=== PATIENT | male | born 1950 | race Caucasian/White ===

== ENCOUNTER 2018-09-15 19:48 | Inpatient (IN) | payer OTHER, MEDICARE ==
[~2018-09-15] VITALS: Ht 182.9 cm; Wt 79.0 kg
[~2018-09-15 19:48] MED LIST: ATOR40TA PO; CAMPHETSO TOP; CEFTIN PO; CHOL10002; CVS LUBRICATING15 ML BOTHEYES; CYCL10 PO; FLONASE ALLERG9.9 ML; GABA300 PO; HYDROCORTISON28.4 G4 TOP; LIDO700A20 TOP; LISI5 PO; LORA1 PO; MICROZIDE12.5 M1 PO; MULVIT PO; NITR.4SL SL; Norco 10-325 T1 EACH PO; ONDA8 PO; OXYB5 PO; Omeprazole20 M1 PO; PIRO20 PO; PROC10 PO; TAMS.4ER PO; TEARS NATURALE LEFTEYE; [UNRECOGNIZED DRUG - REMARK]
[2018-09-15] MEDS ORDERED: ALBU90OI INH (20:22)
[2018-09-15] MEDS ORDERED: ATOR40TA PO (20:23)
[2018-09-15] MEDS ORDERED: LUBRICANT EYE D15 M1 BOTHEYES (20:26)
[2018-09-15] MEDS ORDERED: CYCL10 PO (20:27)
[2018-09-15] MEDS ORDERED: CHOL10002 PO (20:27)
[2018-09-15] MEDS ORDERED: GUAI600T33 PO (20:29)
[2018-09-15] MEDS ORDERED: HYDCHL12.5 PO (20:29)
[2018-09-15] MEDS ORDERED: Ketoconazole15 GM TOP (20:53)
[2018-09-15] MEDS ORDERED: Ketoconazole120 ML TOP (20:55)
[2018-09-15] MEDS ORDERED: SELENIUM SULFI180 ML TOP (20:56)
[2018-09-15] MEDS ORDERED: MORP30ER PO (20:57)
[2018-09-15 21:03] LABS: BASOPHILS ABSOLUTE AUTO 0.01 K/mm3 (0.00-0.23); BASOPHILS PERCENT AUTO 0 % (0-2); EOSINOPHILS ABSOLUTE AUTO 0.03 K/mm3 (0.00-0.68); EOSINOPHILS PERCENT AUTO 0 % (0-6); Hemoglobin 8.9 g/dL (13.5-17.5); IMMATURE GRAN ABSOLUTE AUTO 0.12 K/mm3 (0.00-0.10); IMMATURE GRAN PERCENT AUTO 2 % (0-1); LYMPHOCYTES ABSOLUTE AUTO 0.94 K/mm3 (0.84-5.20); LYMPHOCYTES PERCENT AUTO 13 % (21-46); MONOCYTES ABSOLUTE AUTO 1.73 K/mm3 (0.16-1.47); MONOCYTES PERCENT AUTO 23 % (4-13); Mean Corpuscular HGB Conc 31.8 g/dL (31.5-36.5); Mean Corpuscular Volume 85 fL (80-100); Mean Platelet Volume 8.4 fL (9.1-12.4); NEUTROPHILS ABSOLUTE AUTO 4.72 K/mm3 (1.96-9.15); NEUTROPHILS PERCENT AUTO 63 % (41-73); Platelet Count 524 K/mm3 (150-400); RDW Coefficient Variation 16.1 % (11.7-14.2); RDW Standard Deviation 49.6 fL (35.1-46.3); White Blood Cell Count 7.55 K/mm3 (4.00-11.30)
[2018-09-15] MEDS ORDERED: PIRO20 PO (21:10)
[2018-09-15] MEDS ORDERED: LORA1 PO (21:15)
[2018-09-15] MEDS ORDERED: I-Vite1 EACH PO (21:16)
[2018-09-15 21:23] LABS: Alanine Aminotransfer (ALT/SGP 22 U/L (12-78); Albumin, Blood 2.1 g/dL (3.4-5.0); Albumin/Globulin Ratio 0.4 (0.8-1.8); Alk Phos 196 U/L (50-136); Anion Gap 11 mmol/L (6-16); Aspartate Aminotrans (AST/SGOT 24 U/L (12-37); Bilirubin, Total 0.2 mg/dL (0.1-1.0); Blood Urea Nitrogen 23 mg/dL (8-24); Bun/Creatinine Ratio 33.4 (12.0-20.0); CO2, Blood 24 mmol/L (21-32); Calcium, Blood 8.4 mg/dL (8.5-10.1); Chloride, Blood 97 mmol/L (98-108); Creatinine, Blood 0.69 mg/dL (0.60-1.20); Globulin, Blood 4.9 g/dL (2.2-4.0); Glomerular Filtration Rate >60 (60-); Glucose, Blood 110 mg/dL (70-99); Potassium, Blood 3.8 mmol/L (3.5-5.5); Sodium, Blood 132 mmol/L (136-145); Troponin I 0.027 ng/mL (0.000-0.040)
[2018-09-16 04:38] LABS: Hematocrit 26.9 % (37.0-53.0); Hemoglobin 8.4 g/dL (13.5-17.5); Mean Corpuscular HGB 26.2 pg (26.0-34.0); Mean Corpuscular HGB Conc 31.2 g/dL (31.5-36.5); Mean Corpuscular Volume 84 fL (80-100); Platelet Count 505 K/mm3 (150-400); RDW Coefficient Variation 16.2 % (11.7-14.2); RDW Standard Deviation 49.1 fL (35.1-46.3); Red Blood Cell Count 3.21 M/mm3 (4.30-5.90); White Blood Cell Count 6.93 K/mm3 (4.00-11.30)
[2018-09-16 04:57] LABS: Alanine Aminotransfer (ALT/SGP 22 U/L (12-78); Albumin/Globulin Ratio 0.4 (0.8-1.8); Alk Phos 189 U/L (50-136); Anion Gap 9 mmol/L (6-16); Aspartate Aminotrans (AST/SGOT 16 U/L (12-37); Bilirubin, Total 0.5 mg/dL (0.1-1.0); Blood Urea Nitrogen 20 mg/dL (8-24); Bun/Creatinine Ratio 33.3 (12.0-20.0); CO2, Blood 26 mmol/L (21-32); Calcium, Blood 8.3 mg/dL (8.5-10.1); Chloride, Blood 97 mmol/L (98-108); Globulin, Blood 4.6 g/dL (2.2-4.0); Glomerular Filtration Rate >60 (60-); Glucose, Blood 106 mg/dL (70-99); Sodium, Blood 132 mmol/L (136-145); Total Protein, Blood 6.6 g/dL (6.4-8.2)
--- NOTE | 2018-09-16 07:30 | NUR ---
RECEIVED REPORT FROM RAOUL AVILA, AND ASSUMED CARE OF PT.
--- NOTE | 2018-09-16 07:50 | NUR ---
STOPPED CARDIZEM GTT, GAVE PO CARDIZEM, HAD PO CARDIZEM DURING YARD BRAKEMAN, VSS, AFIB [phone].
--- NOTE | 2018-09-16 08:20 | NUR ---
DR. MCCOLLUM AT BEDSIDE FOR EVALUATION.
--- NOTE | 2018-09-16 08:27 | NUR ---
SHIFT SUMMARY PATIENT ADMITTED FROM THE ER EARLIER THIS SHIFT. CHARGE NURSE NOEMI Kwon COMPLETED ADMIT. PATIENT PLEASENT AND COOPERATIVE THROUGHOUT THE NIGHT. PATIENT MEDICATED FOR PAIN PER EMAR. PATIENT CARDIZEM GTT ON 10 ML/HR. PATIENT STATED THAT HIS SOB WAS "MUCH BETTER NOW." PATIENT APPEARED TO SLEEP WELL THROUGHOUT MOST OF THE REST OF THE NIGHT. PATIENT'S STAYED THE NIGHT AT THE BEDSIDE. REPORT GIVEN TO ONCOMING RN.
--- NOTE | 2018-09-16 08:30 | NUR ---
DR. MCCOLLUM ADVISED THAT HE IS DISCONTINUING THE CARDIZEM AND STARTING LOPRESSOR. I ADVISED THAT IV CARDIZEM WAS STOPPED AT 0750, PO CARDIZEM ALREADY GIVEN THIS AM, AND ASKED IF HE WANTS LOPRESSOR THIS AM AND IF THERE WILL BE HOLD PARAMETERS DUE TO LOW SBP'S IN THE 80'S AT TIMES. DR. MCCOLLUM DOES NOT WANT HOLD PARAMETERS.
--- NOTE | 2018-09-16 08:50 | NUR ---
ECHO AT BEDSIDE.
--- NOTE | 2018-09-16 09:20 | NUR ---
echocardiogram completed
--- NOTE | 2018-09-16 15:14 | NUR ---
Spiritual care visit attempted. Patient was sitting up in bed with spouse bedside. I entered patient's room and introduced myself and stated what department I was from. Patient's said that they have all their spiritual needs covered and that I should go visit others who may have greater needs. After some small talk and some celebration of patient's recovery and upcoming discharge, I left the room.
--- NOTE | 2018-09-16 17:21 | NUR ---
NURSING SUMMARY ALERT AND ORIENTED X 4. AFIB, HR 80'S - 90'S, CARDIZEM GTT DC'D AT 0750, PO CARDIZEM STARTED LAST NIGHT, VSS, DR. MCCOLLUM DISCONTINUED CARDIZEM AND STARTED PT ON LOPRESSOR. LUNGS CLEAR, ROOM AIR. AMBULATES INDEPENDENTLY TO THE BATHROOM, VOIDS PER URINAL FOR I&O MEASUREMENTS. TOLERATING A REGULAR DIET, POOR APPETITE. C/O NECK PAIN, ON ROUTINE MS CONTIN AND LIDOCAINE PATCHES, ALSO GIVING NORCO Q4H. LEFT HAND 22G SALINE LOCK AND LIJ SALINE LOCK.
--- NOTE | 2018-09-17 00:41 | NUR ---
UPDATE DR VILLARREAL NOTIFIED THAT PATIENT'S HEART RATE IS TRENDING IN THE 120'S AND TOUCHES UP TO THE 130'S-140'S. 10 MG IV CARDIZEM X ONE WAS ORDERED. DR VILLARREAL SAID THAT IF THE CARDIZEM PUSH DID NOT MAINTAIN PATIENT'S RATE THROUGHOUT THE NIGHT THEN THE CARDIZEM GTT SHOULD BE STARTED AGAIN.
--- NOTE | 2018-09-17 06:32 | NUR ---
SHIFT SUMMARY PATIENT PLEASENT AND COOPERATIVE THROUGHOUT THE NIGHT. PATIENT'S HEART RATE STARTED TO TREND BACK UP IN THE 120'S AND TOUCHING UP INTO THE 130'S SO THE CARDIZEM GTT WAS RESTARTED PER DR VILLARREAL'S. CARDIZEM GTT RUNNING AT 10 ML/HR AT THIS TIME. PATIENT'S HEART RATE CURRENTLY AFIB RUNNING IN THE 90'S TO LOW 100'S PER THE MONITORS. PATIENT MEDICATED FOR PAIN PER EMAR. PATIENT APPEARED TO SLEEP WELL THROUGHOUT THE NIGHT. WILL CONTINUE TO MONITOR PATIENT AND REPORT TO ONCOMING RN.
--- NOTE | 2018-09-17 09:08 | NUR ---
Assumed Care: Assumed care of pt at approx 0700. VSS. In no apparent sign of distress. Pt is A&Ox4. Calls appropriately and repositions self. C/o 10/27 chronic pain that was medicated per emar. Pt coughed up a small amnt of blood this AM and states that he coughs up blood chronically. See shift assessment for detailed assessment. Family at bedside. Cardizem gtt running per orders at 10mg/hr and verified rate at bedside with gil SILVEIRA. Pt is currently resting in bed with call light within reach. Denies any further questions, complaints or requests at this time. Will continue to monitor.
[2018-09-17] MEDS ORDERED: METO25 PO (15:24)
[2018-09-17] MEDS ORDERED: XARELTO20 MG PO (15:25)
--- NOTE | 2018-09-17 18:24 | NUR ---
Shift Summary/Discharge: No acute changes since initial shift assessment. VSS. In no apparent sign of distress. Pt discharged at approx 1730. Denies any further questions, complaints or requests at time of discharge. HR remained stable in the 80's-90's still in Afib at time of discharge. Pt discharged with all belongings via wheelchair and accompanied by . All medication orders faxed to [place] pharmacy and picked up by prior to DC. Pt denies any other acute complains or events t/o the shift. Pt is currenlty resting in bed with call light within reach. No apparent unmet needs at this time. Will continue to monitor until report is given to gil SILVEIRA. Bed assignment received for room 303, but waiting for room to be cleaned.
== END 2018-09-17 16:30 | disposition home or self-care (01) | DRG 309 ==
LOC: ER 19:48 → PCU 21:54
PROVIDERS: Emergency Medicine; ADMIT Internal Medicine
DX: I48.91 Unspecified atrial fibrillation (principal); R04.2 Hemoptysis; C34.90 Malignant neoplasm of unspecified part of unspecified bronchus or lung; I50.30 Unspecified diastolic (congestive) heart failure; E78.5 Hyperlipidemia, unspecified; I47.2 Ventricular tachycardia; N40.0 Benign prostatic hyperplasia without lower urinary tract symptoms; I49.3 Ventricular premature depolarization; N31.9 Neuromuscular dysfunction of bladder, unspecified; M54.5 Low back pain; I50.9 Heart failure, unspecified; I11.0 Hypertensive heart disease with heart failure
CPT/HCPCS: 36415; 71045; 80053; 83735; 83880; 84484; 85025; 85027; 93005; 93010; 93306; 96365; 96366; 96375; 99285-25; J1940; J3010; J3475; J3480